=== PATIENT | female | born 2000 | race American Indian/Alaskan Native ===

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

== ENCOUNTER 2022-01-01 18:15 | Emergency (ER) | payer MEDICAID ==
[2022-01-01 20:56] VITALS: BP 150/100
== END 2022-01-02 18:00 | disposition left against medical advice (07) ==
LOC: ED 18:15
DX: S61.411A Laceration without foreign body of right hand, initial encounter (principal); Z53.21 Procedure and treatment not carried out due to patient leaving prior to being seen by health care provider; X58.XXXA Exposure to other specified factors, initial encounter; Y93.89 Activity, other specified; Y92.89 Other specified places as the place of occurrence of the external cause; Y99.8 Other external cause status